=== PATIENT | female | born 1945 | race Two or more races ===

== ENCOUNTER → 2021-09-20 | Outpatient (CLI) | payer OTHER, MEDICARE ==
[2021-09-20 10:39] LABS: Calcium 9.3 mg/dL (8.5-10.1); Potassium 4.3 mmol/L (3.5-5.1)
== END | disposition home or self-care (01) ==
LOC: LAB 09:48
PROVIDERS: ATTEND Student in an Organized Health Care Education/Training Program
DX: Z12.11 Encounter for screening for malignant neoplasm of colon (principal); E11.9 Type 2 diabetes mellitus without complications
CPT/HCPCS: 36415; 80048; 83036